=== PATIENT | male | born 1990 | race Caucasian/White ===

== ENCOUNTER 2024-09-06 07:58 | Emergency (ER) | payer OTHER, SELFPAY ==
[2024-09-06 08:02] VITALS: BP 130/93
[2024-09-06 08:25] LABS: % Basophils 0.2 % (0-2); % Immature Granulocytes 0.8 % (0-0.5); % Lymphocytes 3.8 % (20.5-51.1); % Monocytes 6.9 % (1.7-9.3); % Neutrophils 88.3 % (42.2-75.2); Absolute Immature Granulocytes 0.1 10^3/uL (0-0.05); Absolute Lymphocytes 0.4 10^3/uL (1.2-3.4); Absolute Monocytes 0.6 10^3/uL (0.1-0.6); Absolute Neutrophils 8.2 10^3/uL (1.4-6.5); Hematocrit 46.3 % (39.0-52.0); Hemoglobin 16.2 g/dL (13.0-18.0); Mean Corpuscular Hgb 30.2 pg (27.0-31.0); Mean Corpuscular Volume 86.2 fL (80.0-94.0); Mean Platelet Volume 9.8 fL (7.4-10.4); Nucleated Red Blood Cells % 0 % (-); Platelet Count 244 10^3/uL (130-400); Red Blood Cell Count 5.37 10^6/uL (4.70-6.10); Red Cell Dist. Width 12.7 % (11.5-14.5); White Blood Cell Count 9.3 10^3/uL (4.8-10.8)
[2024-09-06 08:34] LABS: ALT (SGPT) 45 U/L (0-50); AST (SGOT) 35 U/L (17-59); Albumin 5.4 g/dl (3.5-5.0); Alkaline Phosphatase 64 U/L (38-126); Blood Urea Nitrogen 14 mg/dl (9-20); Calcium 9.1 mg/dl (8.4-10.2); Carbon Dioxide 25 mmol/L (22-30); Chloride 101 mmol/L (98-107); Glucose 156 mg/dl (70-99); Lipase 51 U/L (23-300); Potassium 3.9 mmol/L (3.5-5.1); Sodium 141 mmol/L (135-145); Total Bilirubin 1.2 mg/dl (0.2-1.3); Total Protein 8.4 g/dl (6.3-8.2); eGFR > 60.00
[2024-09-06 08:37] LABS: COVID-19 Antigen Negative (Negative)
[2024-09-06 11:04] VITALS: BMI 40.2
[2024-09-06] MEDS: ZOFRAN 4 MG IV ×2 (11:16→15:39)
[2024-09-06] MEDS: NSS 1000 IV ×2 (11:16→13:09)
[2024-09-06] MEDS: PROTONIX IV 40 MG IV (11:16)
[2024-09-06 11:17] VITALS: BP 120/68
--- NOTE | 2024-09-06 11:28 | ED.GENMED ---
History of Present Illness
General
Chief Complaint: Abdominal Pain
Source: patient, records and previous radiology exam
Exam Limitations: none
Time Seen by Provider: 09/06/24 10:31
Nursing documentation reviewed up to this point in time: agreed with
History of Present Illness
History of Present Illness:
34-year-old male status post appendectomy prior kidney stone presents with lower abdominal cramping nausea vomiting diarrhea has improved from giant, was not spoiled, was up all night vomiting with diarrhea, no fevers no blood in his stool no blood
in his vomit, pain is different than his kidney stones, 's sick with similar illness although she did not eat the food from giant
Past History
Past History
ED Past Medical History: Other (Kidney stone)
ED Past Surgical History: Appendectomy
Social History
Tobacco: Non-smoker
Alcohol: None
Drug: None
Personal:
Living: with family
Employment: Employed
Family History
Family History: Other (Gallstone)
Review of Systems
Review of Systems
All Other Systems: Not applicable
Constitutional: Denies fever or fatigue
EENT: Reports no symptoms
Respiratory: Reports no symptoms
Cardiac: Denies chest pain
ABD/GI: Reports abdominal pain, nausea, vomiting and diarrhea
: Reports no symptoms
Musculoskeletal: Reports no symptoms
Phy Exam
Physical Exam
Physical Exam:
Physical Exam
General: no apparent distress, not acutely ill
Neck: Lips are dry
Heart: s1/s2 regular rate and rhythm, no murmur. equal radial pulses.
Lungs: no acute respiratory distress. clear bilaterally
Abdomen: Soft mild diffuse tenderness no guarding
Neuro: alert and oriented. no focal neurological deficits
Skin: no rash
Psychiatric: well kept. interactive and cooperative
Extremities: no edema.
Course
Orders/Labs/Results
Orders:
Orders
09/06/24 08:12
COVID-19 Antigen Urgent
Source: Nasal Swab
Complete Blood Count/With Diff Urgent
Comprehensive Metabolic Panel Urgent
Lipase Urgent
Influenza A+B Rapid Molecular Urgent
BRANDI Source: Nasal Swab
Specimen Description:
Date Specimen was Collected: 09/06/24
Time Specimen was Collected: 08:05
09/06/24 08:24
Ondansetron Orally Disint [Zofran Odt (Orally Disintegrating)] 4 mg PO NOW STA
09/06/24 11:01
Ondansetron Orally Disint [Zofran Odt (Orally Disintegrating)] 4 mg .ROUTE .STK-MED ONE
09/06/24 11:05
0.9% Sodium Chloride 1000 ml [Nss] 1,000 ml IV BOLUS
Ondansetron Injectable [Zofran] 4 mg IV NOW STA
Pantoprazole [Protonix IV] 40 mg IV NOW STA
US Abdomen Complete/Upper Urgent
Comment:
Reason For Exam: pain
09/06/24 13:07
0.9% Sodium Chloride 1000 ml [Nss] 1,000 ml IV BOLUS
Mag Hydrox/Al Hydrox/Simeth [Maalox] 30 ml Phenobarb/Hyoscy/Atropine/Scop [] 10 ml PO NOW
09/06/24 13:12
Phenobarb/Hyoscy/Atropine/Scop [] 10 ml .ROUTE .STK-MED ONE
09/06/24 13:13
Mag Hydrox/Al Hydrox/Simeth [Maalox] 30 ml .ROUTE .STK-MED ONE
09/06/24 14:30
Sucralfate Suspension [Carafate Suspension] 1 gm PO NOW STA
09/06/24 14:31
Urinalysis Reflex To Culture Urgent
Date Specimen was Collected: 09/06/24
Time Specimen was Collected: 08:05
Urine Microscopic Reflex Cult Urgent
09/06/24 15:34
Ondansetron Injectable [Zofran] 4 mg IV NOW STA
09/06/24 15:56
HYDROmorphone [Dilaudid] 0.5 mg IV NOW STA
Abnormal Lab Results
09/06/24 09/06/24
08:12 14:31
Abs Immat Gran (auto) 0.1 H 10^3/uL
(0-0.05)
Absolute Neuts (auto) 8.2 H 10^3/uL
(1.4-6.5)
Absolute Lymphs (auto) 0.4 L 10^3/uL
(1.2-3.4)
Immature Gran % 0.8 H %
(0-0.5)
Neutrophils % 88.3 H %
(42.2-75.2)
Lymphocytes % 3.8 L %
(20.5-51.1)
Glucose 156 H mg/dl
(70-99)
Total Protein 8.4 H g/dl
(6.3-8.2)
Albumin 5.4 H g/dl
(3.5-5.0)
Urine Bacteria (Reflex) Few A
(Negative)
Urine Albumin (Reflex) 1+ A
(Neg - Trace)
09/06/24 08:12
09/06/24 08:12
Vital Signs
Initial and Last Documented VS:
Initial Vital Signs
Temp Pulse Resp BP Pulse Ox
98.9 F 120 16 130/93 97
09/06/24 08:02 09/06/24 08:02 09/06/24 08:02 09/06/24 08:02 09/06/24 08:02
Last Documented Vital Signs
Temp Pulse Resp BP Pulse Ox
98.9 F 109 18 120/68 97
09/06/24 08:02 09/06/24 11:17 09/06/24 11:17 09/06/24 11:17 09/06/24 08:02
MDM/Problems Addressed
Differential Diagnosis Includes:
Norovirus Food poisoning dehydration less likely biliary colic patient is status post appendectomy pain is different than his renal colic
MDM/Problems Addressed:
Nausea vomit dehydration
*Critical Care Note
Total Time (30-74mins, 75-104mins- exclusive of procedures): Not Applicable
Update Note
Update Note:
Update, patient still with some upper abdominal cramping, ultrasound completed has not urinated yet will try Maalox noted a liter of fluid add in lipase if has not been done yet
Update 4 PM patient states he still has some mild pain into his back requesting something stronger for pain has a normal lipase, he tells me he vomited 6 or 7 times last night had 5 or 6 episodes of diarrhea his abdomen is soft is not distended not
convinced that this is a obstruction has had numerous CAT scans previously like to get him comfortable with an eye towards discharge PCP follow-up ER for worsening symptoms
ED Attending Note
-
Portions of this chart may have been created with voice recognition software.� Occasional wrong word or��sound alike� substitutions may have occurred due to the inherent limitations of voice recognition software.
Discharge Plan
Departure
Patient Disposition: Home (Routine Discharge)
Date of Disposition: 09/06/24
Time of Disposition: 15:28
Patient with high blood pressure during this ER visit?: No
Condition: Good
Covid-19: Not Applicable
Discharge Problem:
Abdominal pain
Instructions: Diarrhea in teens and adults, Clear Liquid Diet, Nausea and Vomiting, Adult (DC), Abdominal Pain
Prescriptions:
New
ondansetron 4 mg tablet,disintegrating
4 mg PO Q8H PRN (Reason: nausea and vomiting) Qty: 14 0RF
loperamide [Imodium A-D] 2 mg capsule
2 mg PO Q6H PRN (Reason: loose stool) Qty: 20 0RF
pantoprazole [Protonix] 40 mg tablet,delayed release (DR/EC)
40 mg PO DAILY Qty: 30 0RF
No Action
hydrocodone-acetaminophen 1 TABLET tablet
1 tab PO Q4HPRN PRN (Reason: pain) Qty: 8 0RF
oxycodone-acetaminophen 5 MG/325 MG tablet
1 tab PO Q4HPRN PRN (Reason: Pain) Qty: 8 0RF
tamsulosin 0.4 MG capsule
0.4 mg PO DAILY Qty: 14 0RF
ondansetron 4 MG tablet,disintegrating
4 - 8 mg PO QIDPRN PRN (Reason: NAUSEA) Qty: 20 0RF
docusate sodium 100 MG capsule
100 mg PO BID Qty: 20 0RF
magnesium citrate [Citroma] 300 ML solution
300 ml PO ONCE Qty: 1 0RF
oseltamivir 75 MG capsule
75 mg PO BID Qty: 9 0RF
diclofenac sodium 25 MG tablet,delayed release (DR/EC)
50 mg PO BID PRN (Reason: pain) Qty: 30 0RF
ondansetron 4 MG tablet,disintegrating
4 mg PO BIDPRN PRN (Reason: nausea) Qty: 14 0RF
Referrals:
UNKNOWN - PT DOES,NOT KNOW [Family Provider] -
Interventions
Interventions:
*Risk Screen - Suicide Last Done: 09/06/24 08:02
*General Assessment Last Done: 09/06/24 11:05
*Neglect/Abuse Screening Last Done: 09/06/24 08:02
ED- Fall Risk Assessment Last Done: 09/06/24 11:18
*ED COVID-19 Vaccine History Last Done: 09/06/24 11:05
LS-Zgmssn-Eeviuxrhfy Assessment Last Done: 09/06/24 11:18
Discharge Date and Time
Print Language: GAMBIAN
[2024-09-06] MEDS: MAALOX 40 PO (13:22)
[2024-09-06] MEDS: CARAFATE SUSPENSION 1 GM PO (14:35)
[2024-09-06 14:49] LABS: Urine Albumin 1+ (Neg - Trace); Urine Bilirubin Negative (Negative); Urine Character Clear (Clear); Urine Color Yellow; Urine Glucose Negative (Negative); Urine Ketone Negative (Negative); Urine Leukocyte Negative (Negative); Urine Nitrite Negative (Negative); Urine Occult Blood Negative (Negative); Urine Urobilinogen Negative (Neg - 1+)
[2024-09-06 14:58] LABS: Urine Bacteria Few (Negative); Urine Mucus Few; Urine Red Blood Cell 0-2 /HPF (0-2)
[2024-09-06] MEDS: DILAUDID 0.5 MG IV (16:08)
[2024-09-06 16:18] VITALS: BP 102/62
[2024-09-06 16:19] VITALS: BP 102/62
== END 2024-09-06 16:20 | disposition home or self-care (01) ==
LOC: EMR 07:58
PROVIDERS: Emergency Medicine; EMERGENCY PHYSICIAN Emergency Medicine
DX: E86.0 Dehydration (principal); R10.10 Upper abdominal pain, unspecified; R11.2 Nausea with vomiting, unspecified; R19.7 Diarrhea, unspecified; Z90.49 Acquired absence of other specified parts of digestive tract; Z87.442 Personal history of urinary calculi
CPT/HCPCS: 99284; 96374; 96375; 96376; 96361; 76700; 80053; 81003; 81015; 83690; 85025; 87502; 87811